=== PATIENT | female | born 1985 | race Caucasian/White ===

== ENCOUNTER 2024-09-24 10:34 | Emergency (ER) | payer OTHER ==
[~2024-09-24] VITALS: Ht 167.6 cm; Wt 75.4 kg
[~2024-09-24 10:34] MED LIST: VENTOLIN HFA18 GM
[2024-09-24] MEDS ORDERED: KETOROLAC TROMETHAMINE 15 MG/ML VIAL IV ONE ×2 (10:45→12:15)
[2024-09-24] MEDS ORDERED: ondansetron HCL 4 MG/2 ML VIAL IV PRN (10:45)
[2024-09-24 10:49] LABS: BILIRUBIN, URINE NEGATIVE (negative); BLOOD/HGB, URINE LARGE (Negative); KETONE, URINE NEGATIVE (Negative); LEUK ESTERASE, URINE NEGATIVE (negative); NITRITE, URINE NEGATIVE (negative); PH, URINE 5.5 (5-7)
[2024-09-24 10:55] LABS: BACTERIA, URINE 1+ /hpf (negative); CASTS, URINE NONE SEEN \\lpf; COLLECTION TYPE, URINE CLEAN CATCH; CRYSTALS, URINE NONE SEEN (0-1+); EPITHELIAL CELLS, URINE SQUAMOUS 2+ /lpf (0-1+); RED BLOOD CELLS, URINE >50 /hpf (0-5); REFLEX CULTURE, URINE No (No); WHITE BLOOD CELLS, URINE 0-1 /HPF (0-5)
[2024-09-24 10:58] LABS: BASOPHILS 0.6 % (0-2); EOSINOPHILS 2.1 % (0-6); HEMATOCRIT 42.8 % (35.0-50.0); HEMOGLOBIN 14.4 g/dL (12.0-18.0); LYMPHOCYTES 20.7 % (24-44); MCH 30.6 (27-36); MCHC 33.8 g/dl (30-36); MCV 90.7 fl (81-99); MONOCYTES 5.6 % (0-12); PLATELET COUNT 271 K/uL (140-440); RBC 4.72 M/ul (4.3-5.7); RDW 15.4 (10.5-15.0)
[2024-09-24 11:14] LABS: ALBUMIN 4.2 g/dL (3.4-5.0); ALBUMIN/GLOBULIN RATIO 1.17 (1.1-2.4); ANION GAP 14.5 (7-21); BILIRUBIN, TOTAL 0.5 ng/dL (0.2-1.0); BUN/CREATININE RATIO 11.9 (6.0-28.6); CALCIUM 8.7 mg/dL (8.5-10.1); CREATININE, SERUM 0.84 mg/dL (0.55-1.02); POTASSIUM 3.5 mmol/L (3.5-5.1); PROTEIN, TOTAL 7.8 g/dL (6.4-8.2)
[2024-09-24] MEDS ORDERED: HYDROmorphone HCL 1 MG/ML SYR IV PRN (12:15)
[2024-09-24] MEDS ORDERED: FLOMAX0.4 MG PO (13:11)
[2024-09-24] MEDS ORDERED: HYDROCODON-ACE1 EA10 PO (13:11)
[2024-09-24] MEDS ORDERED: ONDANSETRON ODT8 MG PO (13:11)
[2024-09-24] MEDS ORDERED: TAMSULOSIN HCL 0.4 MG CAP PO ONE (13:15)
[2024-09-24] MEDS ORDERED: HYDROCODONE/ACETA 7.5/325 TAB PO ONE (13:15)
[2024-09-24 13:44] VITALS: BP 125/80
== END 2024-09-24 13:40 | disposition home or self-care (01) ==
LOC: ED 10:34
PROVIDERS: Emergency Medicine
DX: N13.2 Hydronephrosis with renal and ureteral calculous obstruction (principal); J45.909 Unspecified asthma, uncomplicated; Z88.2 Allergy status to sulfonamides
CPT/HCPCS: 36415; 74176; 80053; 81001; 84703; 85025; 96374; 96375; 96376; 99284-25; A9270; J1171; J1885; J2405

== ENCOUNTER 2025-05-18 04:35 | Emergency (ER) | payer OTHER ==
[~2025-05-18] VITALS: Ht 167.6 cm; Wt 78.3 kg
[~2025-05-18 04:35] MED LIST changes: +FLOMAX0.4 MG PO; +HYDROCODON-ACE1 EA10 PO; +ONDANSETRON ODT8 MG PO
[2025-05-18] MEDS ORDERED: KETOROLAC TROMETHAMINE 15 MG/ML VIAL IV ONE (04:45)
[2025-05-18 04:50] LABS: BLOOD/HGB, URINE LARGE (Negative); KETONE, URINE TRACE (Negative); LEUK ESTERASE, URINE NEGATIVE (negative); NITRITE, URINE NEGATIVE (negative)
[2025-05-18 04:55] LABS: BASOPHILS 0.9 % (0.1-1.2); EOSINOPHILS 2.9 % (0.7-5.8); LYMPHOCYTES 31.5 % (19.3-51.7); MCH 29.7 PG (25.6-32.2); MCHC 33.8 g/dL (32.2-35.5); MCV 87.7 fL (79.4-94.8); MONOCYTES 7.9 % (4.7-12.5); NEUTROPHILS 56.6 % (34.0-71.1); RBC 4.48 M/uL (3.93-5.22)
[2025-05-18 05:09] LABS: BACTERIA, URINE 1+ /hpf (negative); CASTS, URINE NONE SEEN \\lpf; CRYSTALS, URINE NONE SEEN (0-1+); EPITHELIAL CELLS, URINE SQUAMOUS 2+ /lpf (0-1+); REFLEX CULTURE, URINE No (No)
[2025-05-18 05:11] LABS: ALT (SGPT) 21.0 U/L (14-59); AST (SGOT) 11.0 U/L (15-37); GLOMERULAR FILTRATION RATE,EST 105.0 mL/min (>60); PROTEIN, TOTAL 6.7 g/dL (6.4-8.2); UREA NITROGEN 13.0 mg/dL (7-18)
[2025-05-18] MEDS ORDERED: HYDROmorphone HCL 1 MG/ML SYR IV PRN (05:15)
[2025-05-18] MEDS ORDERED: ONDANSETRON ODT8 MG PO (05:55)
[2025-05-18] MEDS ORDERED: HYDROCODON-ACE1 EA10 PO (05:55)
[2025-05-18] MEDS ORDERED: HYDROCODONE BIT/ACETAMINOPHEN 5/325 MG 1 TAB HOME.PACK PO PRN (06:00)
[2025-05-18] MEDS ORDERED: ONDANSETRON 4 MG HOME.PACK SL ONE (06:00)
[2025-05-18 06:21] VITALS: BP 148/64
== END 2025-05-18 06:23 | disposition home or self-care (01) ==
LOC: ED 04:35
PROVIDERS: Emergency Medicine
DX: N20.2 Calculus of kidney with calculus of ureter (principal); Z87.442 Personal history of urinary calculi; J45.909 Unspecified asthma, uncomplicated; Z88.2 Allergy status to sulfonamides; Z79.899 Other long term (current) drug therapy
CPT/HCPCS: 36415; 74176; 80053; 81001; 84703; 85025; 96374; 96375; 99284-25; A9270; J1171; J1885; J2405

== ENCOUNTER 2025-06-02 05:19 | Emergency (ER) | payer OTHER ==
[~2025-06-02] VITALS: Ht 167.6 cm; Wt 77.2 kg
--- OUTSIDE RECORDS SUMMARY | 2025-06-02 05:20 | XMS ---
PreManage Notification: ENID DUNN [employer] Events No recent Security Events currently on file CRITERIA MET - [facility] - 2 Visits in 30 Days CARE PROVIDERS -, [facility] Dentist: Candy Cooker Helper Current Dmitriy PHONE: [phone] YURY SKELTON Nurse Practitioner: Family Current PHONE: [phone] PIERRE ESPINOZA [facility] Current R PHONE: [phone] HAYLEY ARREAGA Radiology: Diagnostic Radiology Current PHONE: [phone] [facility] Current PHONE: Unknown [facility] Current PHONE: Unknown EMMANUEL FISH Radiology: Diagnostic Radiology Current [facility] PHONE: Unknown Elsy has no Care Guidelines for this patient. Arash VISIT COUNT (12 MO.) 3 DOMINIC Powers TOTAL 3 NOTE: Visits indicate total known visits. ED/UCC VISIT TRACKING (12 MO.) 06/02/2025 05:19 [facility] [place] TYPE: Emergency COMPLAINT: - FLANK PAIN 05/18/2025 04:36 [facility] [place] TYPE: Emergency COMPLAINT: - FLANK PAIN DIAGNOSES: - Allergy status to sulfonamides - Calculus of kidney with calculus of ureter - Other intermediate frame tender (current) drug therapy - Personal history of urinary calculi - Unspecified asthma, uncomplicated - Unspecified renal colic 09/24/2024 10:[address] [facility] [place] TYPE: Emergency COMPLAINT: - FLANK PAIN DIAGNOSES: - Allergy status to sulfonamides - Hydronephrosis with renal and ureteral calculous obstruction - Unspecified abdominal pain - Unspecified asthma, uncomplicated INPATIENT VISIT TRACKING (12 MO.) No inpatient visits to display in this time frame [email or web address]
[2025-06-02] MEDS ORDERED: KETOROLAC TROMETHAMINE 15 MG/ML VIAL IV ONE (05:30)
[2025-06-02] MEDS ORDERED: LACTATED RINGER'S 1,000 ML IV ONE (05:30)
[2025-06-02] MEDS ORDERED: HYDROmorphone HCL 1 MG/ML SYR IV PRN (05:30)
[2025-06-02 05:52] LABS: BASOPHILS 0.9 % (0.1-1.2); EOSINOPHILS 2.2 % (0.7-5.8); LYMPHOCYTES 37.0 % (19.3-51.7); MCH 29.7 PG (25.6-32.2); MCHC 34.4 g/dL (32.2-35.5); MCV 86.3 fL (79.4-94.8); MONOCYTES 9.1 % (4.7-12.5); NEUTROPHILS 50.7 % (34.0-71.1); RBC 4.54 M/uL (3.93-5.22)
[2025-06-02 06:07] LABS: ALT (SGPT) 18.0 U/L (14-59); AST (SGOT) 7.0 U/L (15-37); GLOMERULAR FILTRATION RATE,EST 107.0 mL/min (>60); PROTEIN, TOTAL 6.9 g/dL (6.4-8.2); UREA NITROGEN 9.0 mg/dL (7-18)
[2025-06-02] MEDS ORDERED: ONDANSETRON ODT8 MG PO (06:12)
[2025-06-02] MEDS ORDERED: CIPRO500 MG PO (06:12)
[2025-06-02] MEDS ORDERED: HYDROCODON-ACE1 EA10 PO (06:12)
[2025-06-02] MEDS ORDERED: FLOMAX0.4 MG PO (06:12)
[2025-06-02] MEDS ORDERED: ONDANSETRON 4 MG HOME.PACK SL ONE (06:15)
[2025-06-02] MEDS ORDERED: HYDROCODONE BIT/ACETAMINOPHEN 5/325 MG 1 TAB HOME.PACK PO ONE (06:15)
[2025-06-02] MEDS ORDERED: CIPROFLOXACIN 500 MG TAB PO ONE (06:15)
[2025-06-02] MEDS ORDERED: TAMSULOSIN HCL 0.4 MG CAP PO ONE (06:30)
[2025-06-02 06:38] VITALS: BP 146/106
== END 2025-06-02 06:42 | disposition home or self-care (01) ==
LOC: ED 05:19
PROVIDERS: Family Medicine
DX: N20.0 Calculus of kidney (principal); J45.909 Unspecified asthma, uncomplicated; Z87.442 Personal history of urinary calculi; Z88.2 Allergy status to sulfonamides; Z79.899 Other long term (current) drug therapy
CPT/HCPCS: 36415; 80053; 85025; 96374; 96375; 99284-25; A9270; J1171; J1885; J2405; J7121